=== PATIENT | female | born 1935 | race Caucasian/White ===

== ENCOUNTER 2019-04-01 08:34 | Inpatient (IN) | payer MEDICARE ==
[2019-03-27 16:54] LABS: BASOPHILS % (AUTO) 0.5 % (0-1); EOSINOPHILS # (AUTO) 0.1 X10'3 (0-0.9); EOSINOPHILS % (AUTO) 2.1 % (0-6); LYMPHOCYTES # (AUTO) 1.7 X10'3 (1.1-4.8); MEAN CORPUSCULAR HEMOGLOBIN 31.6 PG (27.0-31.0); MEAN CORPUSCULAR HGB CONC 33.8 g/dL (33.0-36.5); MEAN CORPUSCULAR VOLUME 93.3 FL (78-98); MEAN PLATELET VOLUME 8.1 FL (7.4-10.4); MONOCYTES # (AUTO) 0.8 X10'3 (0-0.9); MONOCYTES % (AUTO) 12.8 % (2-12); NEUTROPHILS # (AUTO) 3.5 X10'3 (1.8-7.7); NEUTROPHILS % (AUTO) 57.6 % (42-75); PRE OP HEMATOCRIT 41.7 % (35.0-45.0); PRE OP HEMOGLOBIN 14.1 g/dL (12.0-16.0); PRE OP PLATELET COUNT 295 X10'3 (140-440); RED BLOOD COUNT 4.47 X10'6 (4.20-5.60); RED CELL DISTRIBUTION WIDTH 13.4 % (11.5-14.5)
[2019-03-27 16:58] LABS: PRE OP PROTIME 10.3 SECONDS (9.0-12.0)
[2019-03-27 16:59] LABS: ALBUMIN 3.7 G/DL (3.4-5.0); ALBUMIN/GLOBULIN RATIO 0.8 (1.1-1.5); ALKALINE PHOSPHATASE 68 IU/L (46-116); BLOOD UREA NITROGEN 28 MG/DL (7-18); BUN/CREATININE RATIO 33.3 (6.6-38.0); CALCIUM 8.9 MG/DL (8.5-10.1); CHLORIDE 101 MMOL/L (99-107); CREATININE 0.84 MG/DL (0.40-0.90); PRE OP ALT 21 U/L (30-65); PRE OP ANION GAP 7 (8-16); PRE OP AST 20 U/L (10-37); PRE OP BILIRUB, TOTAL 0.3 MG/DL (0.0-1.0); PRE OP GLUCOSE 92 MG/DL (70-104); PRE OP POTASSIUM 3.8 MMOL/L (3.4-5.1); PRE OP SODIUM 137 MMOL/L (135-145); TOTAL PROTEIN 8.3 G/DL (6.4-8.2); eGFR 65 ML/MIN
[2019-04-01] VITALS (16 sets, daily range): BP systolic 110–181; BP diastolic 51–86
[~2019-04-01] VITALS: Ht 152.4 cm; Wt 53.1 kg
[~2019-04-01 08:34] MED LIST: AMLO10TA PO; CARV6.252 PO; CYCL1DRO OP; DOCUMENT DATE & TIME OF BETA-BLOCKER PO ONE; FAMO40TA7 PO; LOSA100T57 PO; ROSU40TA PO; TRIA1CAP6 PO; VANCOMYCIN INJ 1000 MG in NORMAL SALINE 250ml IV.SOLN IV ONE; cefazolin/dext.iso 2gm/50ml 50 ML IV ONE; famotidine 20mg tablet PO ONE; ringers solution, lacted 1,000 ML IV SCH; tranexamic acid inj. 1,000 MG in normal saline 100 ML IV ONE
[2019-04-01] MEDS ORDERED: ceFAZolin 1000mg inj ONE (09:25)
[2019-04-01] MEDS ORDERED: ringers solution, lacted 1,000 ML IV SCH (09:57)
[2019-04-01] MEDS ORDERED: meperidine/PF 25mg/ml syringe IV PRN ×3 (10:00)
[2019-04-01] MEDS ORDERED: ondansetron/PF 4mg/2ml inj IV PRN (10:00)
[2019-04-01] MEDS ORDERED: morphine 4 MG/ML inj SYRINge IV PRN ×2 (10:00)
[2019-04-01] MEDS ORDERED: proCHLORperazine 10 MG/2 ml inj IV PRN (10:00)
[2019-04-01] MEDS ORDERED: fentaNYL/PF 50MCG/1 ML 2ML syringe ONE (10:38)
[2019-04-01] MEDS ORDERED: MIDAZolam 5mg/5ml vial ONE (10:39)
[2019-04-01] MEDS ORDERED: ROPIVAcaine 0.5% (5mg/ml) 30ml vial ONE ×2 (11:04→13:04)
[2019-04-01] MEDS ORDERED: ROPIVAcaine 0.5% (5mg/ml) 30ml vial IJ ONE (12:00)
[2019-04-01] MEDS ORDERED: magnesium hydroxide 30ml (MOM) UD suspension PO PRN (13:25)
[2019-04-01] MEDS ORDERED: acetaminophen 325mg tablet PO PRN (13:25)
[2019-04-01] MEDS ORDERED: bisacodyl 10mg suppository rectal RC PRN (13:25)
[2019-04-01] MEDS ORDERED: HYDROmorphone inj. 0.5 MG/0.5 ML DISP.SYRIN IV PRN (13:25)
[2019-04-01] MEDS ORDERED: diphenhydrAMINE 25mg capsule PO PRN ×2 (13:25)
--- NOTE | 2019-04-01 13:43 | NUR ---
Received from OR via , accompanied by Anesthesiologist DR STAFFORD and report given by Anesthesiolgist. AWAKENS TO VOICE. VITALS STABLE. DRESSING DI. KENROY PAIN. HAS SENSATION TO BILAT FEET. PEREZ WITH CLEAR URINE.
[2019-04-01] MEDS: ROPIVAcaine 0.2%/PF PAIN PUMP 550 ML ADDCANAL SCH (14:30)
--- NOTE | 2019-04-01 14:53 | NUR ---
Report called to receiving nurse. Transferred via BED Belongings . Special Issues communicated to receiving nurse.AWAKE AND ORIENTED. VITALS STABLE. DRESSING DI. KENROY PAIN. TO ORTHO RM 4020B AT THIS TIME.
[2019-04-01] MEDS: ceFAZolin 1GM/D5W- ADD-VANTAGE 50 ML IV SCH (15:45)
[2019-04-01] MEDS: potassium Cl 20mEq in NS 1,000 ML IV SCH (16:01)
[2019-04-01] MEDS: aspirin 81mg tablet.DR PO SCH (17:30)
[2019-04-01] MEDS: famotidine 20mg tablet PO SCH (19:40)
[2019-04-01] MEDS: carvedilol 6.25mg tablet PO SCH (19:40)
[2019-04-01] MEDS: cycloSPORINE 0.05% ophthalmic emulsion EACHEYE SCH (20:00)
[2019-04-01] MEDS ORDERED: vancomycin/NS 1 GM ADD-VANTAGE 250 ML IV SCH (20:00)
[2019-04-01] MEDS: sennosides 8.6mg tablet PO SCH (20:42)
[2019-04-01] MEDS: HYDROcodone/acetaminophen 10/325mg tab PO PRN (20:46)
[2019-04-02] MEDS: ceFAZolin 1GM/D5W- ADD-VANTAGE 50 ML IV SCH (00:26)
[2019-04-02] MEDS: HYDROcodone/acetaminophen 10/325mg tab PO PRN ×2 (00:34→04:13)
[2019-04-02 02:15] VITALS: BP 129/48
[2019-04-02] MEDS: potassium Cl 20mEq in NS 1,000 ML IV SCH ×3 (02:45→21:57)
[2019-04-02 05:44] LABS: BASOPHILS % (AUTO) 0.1 % (0-1); EOSINOPHILS % (AUTO) 0 % (0-6); HEMOGLOBIN 11.1 g/dl (12.0-16.0); LYMPHOCYTES # (AUTO) 1.1 X10'3 (1.1-4.8); LYMPHOCYTES % (AUTO) 9.6 % (21-51); MEAN CORPUSCULAR HEMOGLOBIN 32.2 PG (27.0-31.0); MEAN CORPUSCULAR HGB CONC 34.8 g/dL (33.0-36.5); MEAN CORPUSCULAR VOLUME 92.6 FL (78-98); MEAN PLATELET VOLUME 8.4 FL (7.4-10.4); MONOCYTES # (AUTO) 1.6 X10'3 (0-0.9); MONOCYTES % (AUTO) 14.9 % (2-12); NEUTROPHILS # (AUTO) 8.2 X10'3 (1.8-7.7); NEUTROPHILS % (AUTO) 75.4 % (42-75); PLATELET COUNT 224 X10'3 (140-440); RED BLOOD COUNT 3.45 X10'6 (4.20-5.60); RED CELL DISTRIBUTION WIDTH 12.9 % (11.5-14.5)
[2019-04-02 06:00] VITALS: BP 128/71
[2019-04-02 06:19] LABS: ALANINE AMINOTRANSFERASE 23 U/L (12-78); ALBUMIN 2.8 G/DL (3.4-5.0); ALBUMIN/GLOBULIN RATIO 0.7 (1.1-1.5); ALKALINE PHOSPHATASE 57 IU/L (46-116); ANION GAP 9 (8-16); ASPARTATE AMINO TRANSFERASE 11 U/L (10-37); BILIRUBIN,TOTAL 0.4 MG/DL (0.1-1.0); BLOOD UREA NITROGEN 15 MG/DL (7-18); BUN/CREATININE RATIO 17.6 (6.6-38.0); CALCIUM 7.6 MG/DL (8.5-10.1); CHLORIDE 100 MMOL/L (99-107); CREATININE 0.85 MG/DL (0.40-0.90); GLUCOSE 135 MG/DL (70-104); POTASSIUM 4.1 MMOL/L (3.5-5.1); SODIUM 135 MMOL/L (135-145); TOTAL CARBON DIOXIDE 26.4 MMOL/L (24-32); TOTAL PROTEIN 6.6 G/DL (6.4-8.2); eGFR 64 ML/MIN
--- NOTE | 2019-04-02 06:55 | NUR ---
Patient in room ORTHO 4020B. I have received report from Dionne and had the opportunity to ask questions and assume patient care.
--- NOTE | 2019-04-02 07:00 | NUR ---
Pt has ON-Q pump with Ropivicaine currently at 4ml/hr. Pt reports her pain at "4". On-Q increased to 6ml/hr. Recheck of pts pain at 0930, pt reports left knee pain at "7". On Q increased to 8ml/hr at this time. Went to pts bedside at 1015 to discuss current pain rating. Suzanne Palma NP came to pts bedside. Per Suzanne, instructed to turn up her On Q pump to 12ml/hr, and "can back down if her pain level decreases. Pt reported pain at "10" at 11:30. On Q pump increased to 14ml/hr. Follow up with pt to discuss pain level at 12:00 pm and 1400, pt reported her pain at "8" and pt stated "it was getting better." Continued ON Q at 14 ml/hr. Offered pt [place] on multiple occassions between 12:00 pm and 1730. Pt stated "I don't want to take any pain pills." Will continue to monitor.
[2019-04-02] MEDS: ROPIVAcaine 0.2%/PF PAIN PUMP 550 ML ADDCANAL SCH ×3 (07:31→11:18)
[2019-04-02] MEDS: ondansetron/PF 4mg/2ml inj IV PRN (09:11)
[2019-04-02] MEDS: aspirin 81mg tablet.DR PO SCH ×2 (09:36→17:06)
[2019-04-02] MEDS: carvedilol 6.25mg tablet PO SCH ×2 (09:37→19:31)
[2019-04-02] MEDS: losartan 50mg tablet PO SCH (09:38)
[2019-04-02] MEDS: triamterene/HCTZ 37.5/25mg tablet PO SCH (09:39)
[2019-04-02] MEDS: amLODIPine 5mg tablet PO SCH (09:40)
[2019-04-02] MEDS: famotidine 20mg tablet PO SCH ×2 (09:41→19:31)
[2019-04-02] MEDS: cycloSPORINE 0.05% ophthalmic emulsion EACHEYE SCH ×2 (09:43→19:31)
[2019-04-02 10:00] VITALS: BP 150/44
--- NOTE | 2019-04-02 12:34 | NUR ---
Student Medication Administration: For this medication-pass time frame [id number], all medications were reviewed,administered and documented per hospital policy by Val Ruvalcaba. Student documentation:I have reviewed and agree with all interventions, assessments performed and documented by Val Ruvalcaba.
[2019-04-02 14:00] VITALS: BP 147/55
--- NOTE | 2019-04-02 14:24 | NUR ---
Joint replacement consult: Pt s/p L knee surgery PO 0-25% first meal. Pt asleep and unable to wake during RD visit. Written high protein ed w/ RD contact information left at bedside. Will monitor for new PO hx, ONS needs, and high protein ed reinforcement needs post-op. Addendum: 04/02/19 at [address] Amended: Links added.
--- NOTE | 2019-04-02 18:34 | NUR ---
Patient in room ORTHO 4020. I have received report from BRAXTON LINDQUIST and had the opportunity to ask questions and assume patient care.
--- NOTE | 2019-04-02 19:30 | NUR ---
ONQ TURNED DOWN TO 12CC/HR FROM 14CC/HR. I WAS NOT ABLE TO RECORD ON EMAR.
[2019-04-02] MEDS: sennosides 8.6mg tablet PO SCH (19:32)
[2019-04-02 19:42] VITALS: BP 161/56
[2019-04-02 22:00] VITALS: BP 145/54
--- NOTE | 2019-04-02 23:49 | NUR ---
ON Q DOWN TO 10CC/HR
[2019-04-03] MEDS: ondansetron/PF 4mg/2ml inj IV PRN ×3 (01:32→14:38)
[2019-04-03] MEDS: HYDROcodone/acetaminophen 10/325mg tab PO PRN (05:03)
[2019-04-03] MEDS ORDERED: scopolamine 1.5mg patch.TD72 TD ONE (05:55)
[2019-04-03 06:21] LABS: BASOPHILS % (AUTO) 0 % (0-1); EOSINOPHILS % (AUTO) 0 % (0-6); HEMATOCRIT 26.3 % (35.0-45.0); HEMOGLOBIN 9.2 g/dl (12.0-16.0); LYMPHOCYTES # (AUTO) 0.9 X10'3 (1.1-4.8); LYMPHOCYTES % (AUTO) 7.7 % (21-51); MEAN CORPUSCULAR HGB CONC 34.8 g/dL (33.0-36.5); MEAN CORPUSCULAR VOLUME 91.8 FL (78-98); MEAN PLATELET VOLUME 8.5 FL (7.4-10.4); MONOCYTES % (AUTO) 16.3 % (2-12); NEUTROPHILS # (AUTO) 9.3 X10'3 (1.8-7.7); PLATELET COUNT 177 X10'3 (140-440); RED BLOOD COUNT 2.87 X10'6 (4.20-5.60); RED CELL DISTRIBUTION WIDTH 12.9 % (11.5-14.5); WHITE BLOOD COUNT 12.2 X10'3 (4.5-11.0)
--- NOTE | 2019-04-03 06:27 | NUR ---
Problems reprioritized. Patient report given, questions answered & plan of care reviewed with BRAXTON GARCIA.
[2019-04-03 06:37] LABS: ALANINE AMINOTRANSFERASE 18 U/L (12-78); ALBUMIN 2.3 G/DL (3.4-5.0); ALBUMIN/GLOBULIN RATIO 0.6 (1.1-1.5); ALKALINE PHOSPHATASE 56 IU/L (46-116); ANION GAP 8 (8-16); ASPARTATE AMINO TRANSFERASE 20 U/L (10-37); BILIRUBIN,TOTAL 0.4 MG/DL (0.1-1.0); BLOOD UREA NITROGEN 10 MG/DL (7-18); BUN/CREATININE RATIO 16.1 (6.6-38.0); CALCIUM 7.6 MG/DL (8.5-10.1); CHLORIDE 90 MMOL/L (99-107); CREATININE 0.62 MG/DL (0.40-0.90); GLUCOSE 123 MG/DL (70-104); POTASSIUM 3.3 MMOL/L (3.5-5.1); SODIUM 124 MMOL/L (135-145); TOTAL CARBON DIOXIDE 26.3 MMOL/L (24-32); TOTAL PROTEIN 6.1 G/DL (6.4-8.2); eGFR > 90 ML/MIN
[2019-04-03 06:39] VITALS: BP 143/50
--- NOTE | 2019-04-03 07:12 | NUR ---
Daughter Yasimn Mckeon states "patient sleeps upstairs, and father can not take care of her" She live in [place] her numbers are [phone] and [phone] [facility]
[2019-04-03] MEDS: losartan 50mg tablet PO SCH (09:11)
[2019-04-03] MEDS: famotidine 20mg tablet PO SCH ×2 (09:12→20:00)
[2019-04-03] MEDS: amLODIPine 5mg tablet PO SCH (09:12)
[2019-04-03] MEDS: carvedilol 6.25mg tablet PO SCH ×2 (09:12→21:10)
[2019-04-03] MEDS: triamterene/HCTZ 37.5/25mg tablet PO SCH (09:12)
[2019-04-03] MEDS: aspirin 81mg tablet.DR PO SCH ×2 (09:13→18:16)
[2019-04-03] MEDS: cycloSPORINE 0.05% ophthalmic emulsion EACHEYE SCH ×2 (09:13→21:26)
[2019-04-03 09:27] VITALS: BP 148/68
[2019-04-03] MEDS ORDERED: potassium CL 10mEq/100ml bag 100 ML IV PRN (11:10)
[2019-04-03] MEDS ORDERED: potassium Cl 20 mEq SR tablet PO PRN ×2 (11:10)
[2019-04-03 11:56] LABS: MAGNESIUM 1.3 MG/DL (1.5-2.4)
[2019-04-03] MEDS ORDERED: metoclopramide 5 mg/ml inj IV PRN (15:10)
[2019-04-03 18:00] VITALS: BP 139/50
[2019-04-03] MEDS: Potassium Cl inj 20 MEQ in normal saline 1000ml 990 ML IV SCH (18:16)
--- NOTE | 2019-04-03 18:28 | NUR ---
Problems reprioritized. Patient report given, questions answered & plan of care reviewed with Abigail LIMON.
[2019-04-03] MEDS: sennosides 8.6mg tablet PO SCH (21:00)
[2019-04-03 22:00] VITALS: BP 135/50
[2019-04-04] MEDS: Potassium Cl inj 20 MEQ in normal saline 1000ml 990 ML IV SCH (04:41)
[2019-04-04 06:00] VITALS: BP 131/49
[2019-04-04 06:09] LABS: ALANINE AMINOTRANSFERASE 17 U/L (12-78); ALBUMIN 2.1 G/DL (3.4-5.0); ALBUMIN/GLOBULIN RATIO 0.6 (1.1-1.5); ALKALINE PHOSPHATASE 61 IU/L (46-116); ANION GAP 9 (8-16); ASPARTATE AMINO TRANSFERASE 21 U/L (10-37); BILIRUBIN,TOTAL 0.3 MG/DL (0.1-1.0); BLOOD UREA NITROGEN 11 MG/DL (7-18); BUN/CREATININE RATIO 17.2 (6.6-38.0); CALCIUM 7.3 MG/DL (8.5-10.1); CHLORIDE 95 MMOL/L (99-107); CREATININE 0.64 MG/DL (0.40-0.90); GLUCOSE 96 MG/DL (70-104); MAGNESIUM 1.6 MG/DL (1.5-2.4); POTASSIUM 3.4 MMOL/L (3.5-5.1); SODIUM 130 MMOL/L (135-145); TOTAL CARBON DIOXIDE 26.5 MMOL/L (24-32); TOTAL PROTEIN 5.8 G/DL (6.4-8.2); eGFR 89 ML/MIN
[2019-04-04 06:27] LABS: BASOPHILS % (AUTO) 0.1 % (0-1); EOSINOPHILS % (AUTO) 0.2 % (0-6); HEMATOCRIT 23.8 % (35.0-45.0); HEMOGLOBIN 8.4 g/dl (12.0-16.0); LYMPHOCYTES # (AUTO) 0.8 X10'3 (1.1-4.8); LYMPHOCYTES % (AUTO) 9.4 % (21-51); MEAN CORPUSCULAR HEMOGLOBIN 32.1 PG (27.0-31.0); MEAN CORPUSCULAR HGB CONC 35.2 g/dL (33.0-36.5); MEAN CORPUSCULAR VOLUME 91.3 FL (78-98); MEAN PLATELET VOLUME 8.8 FL (7.4-10.4); MONOCYTES # (AUTO) 1.5 X10'3 (0-0.9); MONOCYTES % (AUTO) 17.4 % (2-12); NEUTROPHILS # (AUTO) 6.4 X10'3 (1.8-7.7); NEUTROPHILS % (AUTO) 72.9 % (42-75); PLATELET COUNT 171 X10'3 (140-440); RED CELL DISTRIBUTION WIDTH 12.7 % (11.5-14.5); WHITE BLOOD COUNT 8.8 X10'3 (4.5-11.0)
[2019-04-04] MEDS: aspirin 81mg tablet.DR PO SCH (09:10)
[2019-04-04] MEDS: famotidine 20mg tablet PO SCH (09:10)
[2019-04-04] MEDS: cycloSPORINE 0.05% ophthalmic emulsion EACHEYE SCH (09:10)
[2019-04-04] MEDS: amLODIPine 5mg tablet PO SCH (09:11)
[2019-04-04] MEDS: carvedilol 6.25mg tablet PO SCH (09:11)
[2019-04-04] MEDS: triamterene/HCTZ 37.5/25mg tablet PO SCH (09:11)
[2019-04-04] MEDS: losartan 50mg tablet PO SCH (09:11)
[2019-04-04 10:00] VITALS: BP 109/42
--- NOTE | 2019-04-04 12:39 | NUR ---
F/u: Pt seen by ALVIN prior to d/c for high protein ed verbal reinforcement. RD reviewed high protein needs at this time for wound healing post-op. Pt PO 25% meals so far prior to d/c today. ALVIN encouraged pt to contact ALVIN if further questions. Addendum: 04/04/19 at [address] Amended: Links added.
--- NOTE | 2019-04-04 13:00 | NUR ---
Called report to ranulfo Mcdaniel on her way.
== END 2019-04-04 12:45 | DRG 470 ==
LOC: PAS IN 08:34 → EDSTATUS 10:45 → ORTHO 4S 14:57
PROVIDERS: ADMIT Orthopaedic Surgery; ATTEND Orthopaedic Surgery
PROC: 3E0T3BZ Introduction of Anesthetic Agent into Peripheral Nerves and Plexi, Percutaneous Approach (ICD-10-PCS; 2019-04-01)
PROC: 0SRD069 Replacement of Left Knee Joint with Oxidized Zirconium on Polyethylene Synthetic Substitute, Cemented, Open Approach (ICD-10-PCS; principal; 2019-04-01 10:32)
DX: M17.12 Unilateral primary osteoarthritis, left knee (principal); D62 Acute posthemorrhagic anemia; E87.1 Hypo-osmolality and hyponatremia; E83.42 Hypomagnesemia; E87.6 Hypokalemia; K21.9 Gastro-esophageal reflux disease without esophagitis; E78.5 Hyperlipidemia, unspecified; I10 Essential (primary) hypertension; M25.762 Osteophyte, left knee; Z87.11 Personal history of peptic ulcer disease; Z79.899 Other long term (current) drug therapy; Z88.8 Allergy status to other drugs, medicaments and biological substances; Z90.710 Acquired absence of both cervix and uterus
CPT/HCPCS: 36415; 80053; 82948; 83735; 85025; 85610; 85730; 86885; 86900; 86901; 86920; 87081; 97110; 97116; 97161; 97530; A4215; A6455; A7000; C1713; C1758; C1776; G0378; J0690; J2250; J2405; J2765; J2795; J3010; J3370; J3480; J7030; J7120